=== PATIENT | female | born 1970 | race Two or more races ===

== ENCOUNTER → 2017-08-18 | Outpatient (CLI) | payer OTHER, BC | LOC: M LAB 17:24 | PROVIDERS: ATTEND Nurse Practitioner Women's Health | DX: N13.1 Hydronephrosis with ureteral stricture, not elsewhere classified (principal) ==

== ENCOUNTER → 2017-08-22 | Outpatient (CLI) | payer OTHER, BC ==
[~2017-08-22] MED LIST: ISOVUE-370 76% 100ML VIAL (Q9967) As Ordered ONE
--- NOTE | 2017-08-23 06:37 | REP ---
Clinical: Hydronephrosis. Technique: Precontrast, contrast enhanced, and delayed images of the abdomen and pelvis using 100 ml Isovue 370 intravenous contrast material with coronal and sagittal re-formations. Findings: The urinary tract system demonstrates a very subtle low density streaks extending to the renal cortex bilaterally likely represent small areas of previous scarring and less likely acute pyelonephritis. There is no evidence for perinephric stranding and no evidence for hydroureteronephrosis, intrarenal or obstructing ureteral calculi. The bilateral kidneys demonstrate otherwise normal, and symmetric enhancement patterns and delayed images demonstrate normal collecting systems without hydronephrosis. Ureters and bladder appear normal. Liver, spleen, pancreas, collapsed gallbladder, and bilateral adrenal glands are normal. The enteric system is without obstruction or acute inflammatory process. Pelvis demonstrates normal bladder and age-appropriate uterus/adnexa. No pelvic fluid or ascites. No obvious adenopathy or mass lesion. No free air. Abdominal aorta and vasculature appears normal. Surrounding musculoskeletal structures are intact. Lung bases are clear. Impression: Streaky low-density cortical changes to the kidneys suggest mild scattered scarring and less likely pyelonephritis. Correlation with physical examination and urinalysis recommended. Urinary tract system is otherwise unremarkable and there is no evidence for nephrolithiasis, hydroureternephrosis, cystic or mass lesion. Signed by Anmol Montejo MD 08/23/2017 06:29 A
== END ==
LOC: M RAD 17:29
PROVIDERS: ATTEND Nurse Practitioner Women's Health
DX: N13.1 Hydronephrosis with ureteral stricture, not elsewhere classified (principal); M54.5 Low back pain; Z87.440 Personal history of urinary (tract) infections
CPT/HCPCS: 74178; Q9967

== ENCOUNTER 2025-10-10 13:52 | Emergency (ER) | payer OTHER ==
[~2025-10-10] VITALS: Ht 165.1 cm; Wt 84.9 kg
[2025-10-10] MEDS: FAMOTIDINE 20 MG/2 ML VIAL IVP ONE (14:47)
[2025-10-10 14:51] LABS: BASO # 0.0 10^3/uL (0.0-0.2); BASO % 0.4 % (0.0-1.0); EOS # 0.1 10^3/uL (0.0-0.5); EOS % 1.2 % (0.0-3.0); LYMPH # 1.9 10^3/uL (1.5-5.0); LYMPH % 33.6 % (24.0-44.0); MONO # 0.5 10^3/uL (0.0-0.8); MONO % 8.1 % (2.0-8.0); NEUTROPHILS # 3.2 10^3/uL (1.5-8.5); NEUTROPHILS % 56.5 % (36.0-66.0); PLATELET COUNT, AUTOMATED 261 10^3/uL (150-450)
[2025-10-10 14:53] LABS: CALCIUM LEVEL 9.0 MG/DL (8.5-10.1); CARBON DIOXIDE LEVEL 27 MMOL/L (20-31); CHLORIDE LEVEL 100 MMOL/L (98-107); CREATININE FOR GFR 0.65 MG/DL (0.55-1.30); GLOMERULAR FILTRATION RATE > 90.0 (>51); POTASSIUM SERUM 3.5 MMOL/L (3.5-5.1); SODIUM LEVEL 136 MMOL/L (136-145)
[2025-10-10] MEDS ORDERED: PRED20TA PO (16:23)
[2025-10-10] MEDS ORDERED: EPIP0.3I2 IM (16:24)
[2025-10-10] MEDS ORDERED: BENA25CA4 PO (16:24)
[2025-10-10 17:03] VITALS: BP 124/71; TEMP 98.5; O2SAT 99
== END 2025-10-10 17:08 | disposition home or self-care (01) ==
LOC: EDBD 13:52 → M ED 13:52
DX: T78.40XA Allergy, unspecified, initial encounter (principal); E78.5 Hyperlipidemia, unspecified; E66.9 Obesity, unspecified; Z88.5 Allergy status to narcotic agent
CPT/HCPCS: 80048; 85025; 93041; 94760; 96374; 96375; 99285; J1308; J2919